=== PATIENT | male | born 1970 | race Caucasian/White ===

== ENCOUNTER 2022-11-03 11:48 | Outpatient (CLI) | payer OTHER, SELFPAY ==
--- NOTE | 2022-11-03 07:54 | W.ANESCHARGE ---
Anesthesia Charges Start Date/Time Anesthesia Start Date: 11/03/22 Anesthesia Start Time: 12:45 Stop Date/Time Anesthesia Stop Date: 11/03/22 Anesthesia Stop Time: 13:15
--- NOTE | 2022-11-03 13:14 | W.ANESCHARGE ---
Anesthesia Charges Start Date/Time Anesthesia Start Date: 11/03/22 Anesthesia Start Time: 12:45 Stop Date/Time Anesthesia Stop Date: 11/03/22 Anesthesia Stop Time: 13:15
== END 2022-11-03 11:49 | disposition home or self-care (01) ==
PROVIDERS: Visit Provider Internal Medicine Gastroenterology
DX: R19.5 Other fecal abnormalities (principal); K62.1 Rectal polyp
CPT/HCPCS: 45385; 811; 88305; J2704